=== PATIENT | male | born 1975 | race Caucasian/White ===

== ENCOUNTER 2017-03-29 19:41 | Emergency (ER) | payer SELFPAY ==
[~2017-03-29] VITALS: Ht 170.2 cm; Wt 81.0 kg
[~2017-03-29 19:41] MED LIST: CYCL-319 PO; HYDR-3498 PO; IBUP-1542 PO
[2017-03-29 19:53] VITALS: Ht 170.2 cm; Wt 81.0 kg
[2017-03-29] MEDS ORDERED: HYDROCODONE/APAP (5/325) TAB PO ONE (21:00)
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
[2017-03-29] MEDS ORDERED: IBUP800T25 PO (21:40)
[2017-03-29] MEDS ORDERED: HYDR-906 PO (21:40)
[2017-03-29 21:45] VITALS: BP 159/110; PULSE 82; RESP 16
== END 2017-03-29 21:52 | disposition home or self-care (01) ==
LOC: E/R 19:41
DX: S16.1XXA Strain of muscle, fascia and tendon at neck level, initial encounter (principal); R51 Headache; R07.9 Chest pain, unspecified; V49.40XA Driver injured in collision with unspecified motor vehicles in traffic accident, initial encounter
CPT/HCPCS: 70450; 71010; 72125; 93005